=== PATIENT | female | born 1980 | race Two or more races ===

== ENCOUNTER → 2018-02-24 | Outpatient (CLI) | payer OTHER | END | disposition home or self-care (01) | LOC: LAB 14:07 | PROVIDERS: ATTEND Preventive Medicine Preventive Medicine/Occupational Environmental Medicine | DX: Z02.1 Encounter for pre-employment examination (principal) | CPT/HCPCS: 36415; 86706; 86735; 86762; 86765; 86787 ==

== ENCOUNTER 2021-12-21 12:36 | Emergency (ER) | payer OTHER ==
[~2021-12-21] VITALS: Ht 149.9 cm; Wt 85.0 kg
[2021-12-21 12:43] VITALS: BP 158/100
[2021-12-21] MEDS ORDERED: ASPirin 81 mg TAB PO ONE (13:00)
[2021-12-21 13:37] LABS: Basophils # (auto) 0 10 ^3/uL (0-0.2); Basophils % (auto) 0.4 % (0.0-2.0); Eosinophils # (auto) 0.1 10 ^3/uL (0-0.8); Eosinophils % (auto) 0.9 % (0.0-7.0); Hematocrit 41.1 % (36.0-46.0); Hemoglobin 14.1 g/dL (12.2-16.2); Lymphocytes # (auto) 3.1 10 ^3/uL (0.4-5.4); Lymphocytes % (auto) 37.3 % (10.0-50.0); Mean Corpuscular Hemoglobin 28.3 pg (28.0-32.0); Mean Corpuscular Hgb Conc. 34.3 g/dL (32.0-36.0); Mean Corpuscular Volume 82.6 fL (80.0-100.0); Monocytes # (auto) 0.3 10 ^3/uL (0-1.3); Monocytes % (auto) 3.5 % (0.0-12.0); Neutrophils # (auto) 4.9 10 ^3/uL (1.6-8.6); Neutrophils % (auto) 57.9 % (37.0-80.0); Nucleated Red Blood Cells % 0.1 %; Red Blood Cells 4.98 10^6/uL (4.0-5.20); Red Cell Distribution Width 13.4 % (11.8-14.3); White Blood Cell 8.4 10^3/uL (4.4-10.8)
[2021-12-21 13:54] LABS: Potassium 3.7 mmol/L (3.5-5.1)
[2021-12-21 13:58] LABS: Albumin 4.3 g/dL (3.4-5.0); BUN/Creatinine Ratio 16.1; Calcium 9.1 mg/dL (8.5-10.1); Magnesium 2.4 mg/dL (1.6-2.6)
[2021-12-21 14:01] LABS: Bilirubin, Total 0.5 mg/dL (0.2-1.0); Total Protein 8.2 g/dL (6.4-8.2)
[2021-12-21] MEDS ORDERED: IOHEXOL 350 MG/ML 100ML IJ ONE (14:10)
== END 2021-12-21 15:29 | disposition home or self-care (01) ==
LOC: ER 12:38
DX: R07.89 Other chest pain (principal); I10 Essential (primary) hypertension
CPT/HCPCS: 36415; 71046; 71275; 80053; 83735; 84484; 85025; 93005; 99285; Q9967

== ENCOUNTER 2022-03-06 09:25 | Emergency (ER) | payer OTHER ==
[~2022-03-06] VITALS: Ht 149.9 cm; Wt 85.3 kg
[2022-03-06] MEDS ORDERED: MECLIZINE HCL 25 MG TAB PO ONE (09:45)
[2022-03-06] MEDS ORDERED: MECL1TAB42 PO (09:51)
[2022-03-06 09:53] LABS: Basophils # (auto) 0.1 10 ^3/uL (0-0.2); Basophils % (auto) 1.7 % (0.0-2.0); Eosinophils # (auto) 0.1 10 ^3/uL (0-0.8); Eosinophils % (auto) 1.1 % (0.0-7.0); Hematocrit 43.9 % (36.0-46.0); Hemoglobin 14.5 g/dL (12.2-16.2); Lymphocytes # (auto) 3.4 10 ^3/uL (0.4-5.4); Mean Corpuscular Hemoglobin 28.1 pg (28.0-32.0); Mean Corpuscular Hgb Conc. 32.9 g/dL (32.0-36.0); Mean Corpuscular Volume 85.3 fL (80.0-100.0); Monocytes # (auto) 0.2 10 ^3/uL (0-1.3); Monocytes % (auto) 3.1 % (0.0-12.0); Neutrophils # (auto) 2.9 10 ^3/uL (1.6-8.6); Neutrophils % (auto) 43.1 % (37.0-80.0); Nucleated Red Blood Cells % 0.1 %; Red Blood Cells 5.14 10^6/uL (4.0-5.20); Red Cell Distribution Width 13.8 % (11.8-14.3); White Blood Cell 6.6 10^3/uL (4.4-10.8)
[2022-03-06 10:09] LABS: Potassium 4.1 mmol/L (3.5-5.1)
[2022-03-06 10:15] LABS: Albumin 4.4 g/dL (3.4-5.0); BUN/Creatinine Ratio 14.3; Bilirubin, Total 0.7 mg/dL (0.2-1.0); Calcium 8.7 mg/dL (8.5-10.1)
[2022-03-06 12:01] LABS: Urine Bacteria NONE SEEN /hpf (None Seen); Urine Blood 3+ /uL (Negative); Urine Specific Gravity 1.027 (1.001-1.035); Urine WBC 39 /hpf (0 - 5)
[2022-03-06] MEDS ORDERED: NITR-87 PO (12:17)
[2022-03-06 12:50] VITALS: BP 132/90
== END 2022-03-06 12:53 | disposition home or self-care (01) ==
LOC: ER 09:25
DX: R42 Dizziness and giddiness (principal); N39.0 Urinary tract infection, site not specified; R10.2 Pelvic and perineal pain
CPT/HCPCS: 36415; 70450; 80053; 81001; 82962; 84702; 85025; 93005; 99285; J7030; J8597

== ENCOUNTER 2024-09-25 22:07 | Emergency (ER) | payer OTHER ==
[~2024-09-25] VITALS: Ht 149.9 cm; Wt 80.2 kg
[~2024-09-25 22:07] MED LIST: MECL1TAB42 PO; NITR-87 PO
--- NOTE | 2024-09-25 22:40 | ED.PDOC ---
History of Present Illness HPI Comments 44-year-old female who came to ER due to high blood pressure. Patient has a history of gestational hypertension when she gave 4 years ago. Patient was started on amlodipine then, but has been off of the medications for the past 2 years, 2 days ago, patient started experiencing headaches, despite taking Tylenol. Noted blood pressure to be elevated in the 170/115 mm Hg. Episodes of increased blood pressure in the past 2 days prompted patient to come to the ER. Blood pressure at time of arrival was 166/108. Chief Complaint: High Blood Pressure Time Seen by MD: 22:40 Primary Care Provider: RYAN Reviewed Notes: Nurses Notes Allergies: Coded Allergies: Flu Virus Vaccine (Verified Allergy, Unknown, 12/21/21) Lisinopril (Verified Allergy, Unknown, 09/25/24) Home Meds Active Scripts Nitrofurantoin Monohydrate Mac (Macrobid) 100 Mg Cap, 100 MG PO BID for 7 Days, #14 CAP Prov:RASHID MATT MD 03/06/22 Meclizine HCl (Meclizine 25) 25 Mg Tab, 25 MG PO DAILY for 7 Days, #7 TAB Prov:RASHID MATT MD 03/06/22 Information Source: Patient Mode of Arrival: Ambulatory Severity: Moderate Timing: Days Duration: Intermittent Prehospital treatment: None Past Medical History PAST MEDICAL HISTORY: HTN Past Medical History (Other): Gestational hypertension Surgical History: [employer] History: Denies all [employer] Hx Family History Family History: Family hx of DM, Family hx of heart aureliano, Family hx of HTN Social History Smoker: Non-Smoker Alcohol: Occasionally Drugs: Denies Drug Use Lives In: Home Constitutional: denies: chills, diaphoresis, fatigue, fever, malaise, sweats, weakness, others EENTM: denies: blurred vision, double vision, ear bleeding, ear discharge, ear drainage, ear pain, ear ringing, eye pain, eye redness, hearing loss, mouth pa in, mouth swelling, nasal discharge, nose bleeding, nose congestion, nose pain, photophobia, tearing, throat pain, throat swelling, voice changes, others Respiratory: denies: cough, hemoptysis, orthopnea, SOB at rest, shortness of breath, SOB with excertion, stridor, wheezing, others Cardiovascular: denies: chest pain, dizzy spells, diaphoresis, Dyspnea on exertion, edema, irregular heart beat, left arm pain, lightheadedness, palpitations, PND, syncope, others Gastrointestinal: denies: abdomen distended, abdominal pain, blood streaked bowels, constipated, diarrhea, dysphagia, difficulty swallowing, hematemesis, melena, nausea, poor appetite, poor fluid intake, rectal bleeding, rectal pain, vomiting, others Genitourinary: denies: abnormal vagina bleeding, burning, dyspareunia, dysuria, flank pain, frequency, hematuria, incontinence, pain, , vagina discharge, urgency, others Neurological: reports: headache; denies: dizziness, fainting, left sided numbness, left sided weakness, numbness, paresthesia, pre-existing deficit, right sided numbness, right sided weakness, seizure, speech problems, tingling, tremors, weakness, others Musculoskeletal: denies: back pain, gout, joint pain, joint swelling, muscle pain, muscle stiffness, neck pain, others Integumetry: denies: bruises, change in color, change in hair/nails, dryness, laceration, lesions, lumps, rash, wounds, others Allergic/Immunocompromised: denies: Difficulty Healing, Frequent Infections, Hives, Itching, others Hematologic/Lymphatic: denies: anemia, blood clots, easy bleeding, easy bruisi ng, swollen glands, others Endocrine: denies: excessive hunger, excessive sweating, excessive thirst, exce ssive urination, flushing, intolerance to cold, intolerance to heat, unexplained weight gain, unexplained weight loss, others Psychiatric: denies: anxiety, bipolar disorder, depression, hopeless, panic disorder, schizophrenia, sleepless, suicidal, others Physical Exam General Appearance: Moderate Distress (Patient was in [id number] distress due to anxiety rather than any definitive headache pain concerns.), Normal HEENT: Normal ENT Inspection, Pharynx Normal, TMs Normal Neck: Full Range of Motion, Non-Tender, Normal, Normal Inspection Respiratory: Chest Non-Tender, Lungs Clear, No Accessory Muscle Use, No Respiratory Distress, Normal Breath Sounds Cardiovascular: No Edema, No JVD, No Murmur, No Gallop, Normal Peripheral Pulses, Regular Rate/Rhythm Breast Exam: Deferred Gastrointestinal: No Organomegaly, Non Tender, No Pulsatile Mass, Normal Bowel Sounds, Soft Genitalia: Deferred Pelvic: Deferred Rectal: Deferred Extremities: No calf tenderness, Normal inspection, Non-tender, No pedal edema Musculoskeletal : Apperance: Normal Neurologic: Alert, No Motor Deficits, Normal Affect, Normal Mood, No Sensory Deficits Cerebellar Function: NOT DONE Reflexes: NOT DONE Skin: Dry, Normal Color, Warm Lymphatic: No Adenopathy Was a procedure done? Was a procedure done?: No Differential Dx Considerations may include: Hypertensive urgency, anemia, electrolyte imbalance, medication non compliance X-Ray, Labs, Meds, VS Vital Signs Date Time Temp Pulse Resp B/P (MAP) Pulse Ox O2 Delivery O2 Flow Rate FiO2 09/26/24 01:06 98.0 86 17 149/94 (112) 96 98.0 09/25/24 22:09 98.4 118 16 166/108 98 98.4 Lab Test 09/25/24 23:59 09/25/24 22:53 Range/Units Urine Color Pending Urine Clarity Pending Urine pH Pending Urine Specific [place] Pending Urine Protein Pending Urine Ketones Pending Urine Blood Pending Urine Nitrite Pending Urine Bilirubin Pending Urine Urobilinogen Pending Urine Leukocyte Esterase Pending Urine RBC Pending Urine Microscopic WBC Pending Urine Squamous Epithelial Cells Pending Urine Bacteria Pending Urine Glucose Pending White Blood Count 6.7 4.4-10.8 10^3/uL Red Blood Count 4.79 4.0-5.20 10^6/uL Hemoglobin 13.5 12.2-16.2 g/dL Hematocrit 39.2 36.0-46.0 % Mean Corpuscular Volume 81.8 80.0-100.0 fL Mean Corpuscular Hemoglobin 28.1 28.0-32.0 pg Mean Corpuscular Hemoglobin Concent 34.4 32.0-36.0 g/dL Red Cell Distribution Width 13.8 11.8-14.3 % Platelet Count 366 140-450 10^3/uL Mean Platelet Volume 7.9 6.9-10.8 fL Neutrophils (%) (Auto) 49.6 37.0-80.0 % Lymphocytes (%) (Auto) 39.9 10.0-50.0 % Monocytes (%) (Auto) 5.7 0.0-12.0 % Eosinophils (%) (Auto) 4.2 0.0-7.0 % Basophils (%) (Auto) 0.6 0.0-2.0 % Neutrophils # (Auto) 3.3 1.6-8.6 10 ^3/uL Lymphocytes # (Auto) 2.7 0.4-5.4 10 ^3/uL Monocytes # (Auto) 0.4 0-1.3 10 ^3/uL Eosinophils # (Auto) 0.3 0-0.8 10 ^3/uL Basophils # (Auto) 0 0-0.2 10 ^3/uL Nucleated Red Blood Cells 0.1 % D-Dimer, Quantitative 0.21 0.0-0.49 mg/L FEU Sodium Level 141 136-145 mmol/L Potassium Level 3.1 L 3.5-5.1 mmol/L Chloride Level 105 98-107 mmol/L Carbon Dioxide Level 26 20-31 mmol/L Anion Gap 10 5-15 Blood Urea Nitrogen 13 9-23 mg/dL Creatinine 0.94 0.550-1.02 mg/dL Glomerular Filtration Rate Calc 77 >90 mL/min BUN/Creatinine Ratio 13.8 10.0-20.0 Serum Glucose 111 H 74-106 mg/dL Calcium Level 9.2 8.7-10.4 mg/dL Troponin I High Sensitivity < 3 L </=34 ng/L X-Ray, Labs, Meds, VS Comment All studies performed in the ED today were evaluated by me personally. Serum studies were unremarkable for any systemic concerns. When nursing attempted to medicate the patient, patient's blood pressure had returned to an acceptable range. Patient stated she had much improvement of her symptoms. Advised patient I will send her home with some emergent medication to use as directed. Patient needs to follow up with the primary care provider for discussions rela ra to possible hypertensive issues that will require daily medication. Time of 1ST Reevaluation: 01:11 Reevaluation 1ST: Improved Consultation: PCP Patient Education/Counseling: Diagnosis, Treatment Family Education/Counseling: Diagnosis, Treatment, No Family Present SEPSIS Sepsis Screen Date sepsis recognized/suspect: Sep 25, 2024 Time Sepsis recognized/suspect: 2208 Recent Procedure: No On Antibiotic Therapy: No Respiratory Rate >20: No Heart Rate >90: Yes Temp<36 C (96.8 F) or >38.3 C: No SBP <90 or MAP <65 mmHG: No New Acute Mental Status Change: No Is the patient on CPAP, BIPAP,: No Physician Orders Urinalysis (09/25/24 22:32) Electrocardigram (09/25/24 22:32) Vital Signs Date Time Temp Pulse Resp B/P (MAP) Pulse Ox O2 Delivery O2 Flow Rate FiO2 09/26/24 01:06 98.0 86 17 149/94 (112) 96 98.0 09/25/24 22:09 98.4 118 16 166/108 98 98.4 Laboratory Tests Test 09/25/24 22:53 White Blood Count 6.7 10^3/uL (4.4-10.8) Departure 1 Departure Time of Disposition: 01:12 Impression: Primary Impression: Hypertension Disposition: 01 HOME / SELF CARE / HOMELESS Condition: Stable Additional Instructions: Advised patient utilize medication on emergent basis as directed. Patient needs to follow up with the primary care provider for discussions related to possible hypertension concerns. Patient should acquire a blood pressure monitor as well as a blood pressure journal. e-Prescriptions Clonidine Hydrochloride (Clonidine Hcl) 0.2 Mg Tab 1 TAB PO Q12HP PRN, #20 TAB 0 Refills To be used if systolic pressure is above 160 or diastolic pressure is above 90. Prov: DEEDEE MACKEY PAC 09/26/24 Discharged With: Self, Friend Critical Care Note Critical Care Time?: No Stability Stability form required: No Heart Score Heart Score: Heart Score Response (Comments) Value History N/A 0 EKG N/A 0 Age N/A 0 Risk Factors N/A 0 Troponin N/A 0 Total 0 I personally scribed for DEEDEE MACKEY PAC ([email or web address]) on 09/25/24 at 22:40. Electronically submitted by Stu Enriquez ([email or web address]). DEEDEE MACKEY PAC Sep 25, 2024 22:40
[2024-09-25 23:12] LABS: Hematocrit 39.2 % (36.0-46.0); Hemoglobin 13.5 g/dL (12.2-16.2); Mean Corpuscular Hemoglobin 28.1 pg (28.0-32.0); Mean Corpuscular Volume 81.8 fL (80.0-100.0); Nucleated Red Blood Cells % 0.1 %
[2024-09-25 23:20] LABS: Chloride 105 mmol/L (98-107); Sodium 141 mmol/L (136-145)
[2024-09-25 23:21] LABS: Anion Gap 10 (5-15); Calcium 9.2 mg/dL (8.7-10.4); Carbon Dioxide 26 mmol/L (20-31)
[2024-09-25 23:26] LABS: BUN/Creatinine Ratio 13.8 (10.0-20.0); Blood Urea Nitrogen 13 mg/dL (9-23); Glucose 111 mg/dL (74-106); Potassium 3.1 mmol/L (3.5-5.1)
[2024-09-26 01:06] VITALS: BP 149/94; PULSE 86; RESP 17; TEMP 98; O2SAT 96
[2024-09-26] MEDS ORDERED: CLON0.2T PO (01:14)
[2024-09-26 01:23] LABS: Urine Protein, UAD Negative (Negative)
--- NOTE | 2024-09-27 10:14 | ECG ---
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
== END 2024-09-26 01:24 | disposition home or self-care (01) ==
LOC: ER 22:07
DX: I10 Essential (primary) hypertension (principal); R51.9 Headache, unspecified; Z79.899 Other long term (current) drug therapy; Z98.890 Other specified postprocedural states; Z87.59 Personal history of other complications of pregnancy, childbirth and the puerperium; Z88.7 Allergy status to serum and vaccine; Z88.8 Allergy status to other drugs, medicaments and biological substances
CPT/HCPCS: 36415; 80048; 81001; 84484; 85025; 85379; 93005